=== PATIENT | female | born 1985 | race Caucasian/White ===

== ENCOUNTER → 2017-08-01 | Outpatient (CLI) | payer OTHER ==
--- NOTE | 2017-08-02 16:52 | MR ---
EXAMINATION TYPE: MR knee RT wo con DATE OF EXAM: 08/01/2017 COMPARISON: NONE HISTORY: 31-year-old female with right knee pain, tripped on stairs 3 weeks ago TECHNIQUE: Multiplanar, multisequence imaging of the right knee is performed without IV contrast. FINDINGS: ACL, PCL, MCL, and LCL complex are intact. The medial and lateral menisci are intact. Preserved tricompartmental articular cartilage volumes without discrete chondral injury. Extensor mechanism is intact. There is edema within the suprapatellar fat pad. Physiologic knee joint fluid. No Hull's cyst. Normal popliteal artery anatomy in muscle bulk. No suspicious bone marrow replacement. IMPRESSION: 1. Edema within the suprapatellar fat pad. Findings can be seen in the setting of fat pad impingement syndrome. Clinically correlate. 2. No cruciate/collateral ligament or meniscal tear. 3. No discrete chondral injury.
== END | disposition home or self-care (01) ==
LOC: RADMRIMAIN 11:12
PROVIDERS: ATTEND Orthopaedic Surgery
DX: M79.89 Other specified soft tissue disorders (principal)